=== PATIENT | female | born 1995 | race Two or more races ===

== ENCOUNTER 2017-06-04 21:55 | Emergency (ER) | payer BC ==
[2017-06-04 22:31] LABS: URINE HCG POC HCG NEGATIVE (Negative)
[2017-06-04 22:52] LABS: ADD MAN DIFF? NO
[2017-06-04] MEDS: IV NORMAL SALINE 1000ML BAG 1,000 ML IV (22:54)
[2017-06-04 22:55] LABS: BASO % 0 % (0-3); EOS # 0.2 x10^3/uL (0.0-0.7); EOS % 2 % (0-3); HEMATOCRIT 36.7 % (36.0-47.0); HEMOGLOBIN 11.7 g/dL (12.0-15.5); LYMPH # 3.6 x10^3/uL (1.0-4.8); LYMPH % 30 % (24-48); MEAN CORPUSCULAR HEMOGLOBIN 26 pg (25-35); MEAN CORPUSCULAR HGB CONC 32 g/dL (31-37); MEAN CORPUSCULAR VOLUME 83 fL (79-100); MONO # 0.7 x10^3/uL (0.0-1.1); MONO % 6 % (0-9); NEUT # 7.3 x10^3uL (1.8-7.7); NEUT % 62 % (31-73); PLATELET COUNT 273 x10^3/uL (140-400); RED BLOOD COUNT 4.44 x10^6/uL (3.50-5.40); RED CELL DISTRIBUTION WIDTH 15.4 % (11.5-14.5); WHITE BLOOD COUNT 11.8 x10^3/uL (4.0-11.0)
[2017-06-04 23:05] LABS: ANION GAP 11 (6-14); BLOOD UREA NITROGEN 23 mg/dL (7-20); BUN/CREATININE RATIO 33 (6-20); CALCIUM 8.1 mg/dL (8.5-10.1); CARBON DIOXIDE 26 mmol/L (21-32); CHLORIDE 103 mmol/L (98-107); CREATININE 0.7 mg/dL (0.6-1.0); GFR 104.6; GLUCOSE 113 mg/dL (70-99); POTASSIUM 3.7 mmol/L (3.5-5.1); SODIUM 140 mmol/L (136-145)
[2017-06-04 23:06] LABS: PARTIAL THROMBOPLASTIN TIME 30 SEC (24-38); PROTHROMBIN TIME PATIENT 12.8 SEC (11.7-14.0)
[2017-06-04 23:11] LABS: ALBUMIN 3.4 g/dL (3.4-5.0); ALBUMIN/GLOBULIN RATIO 0.8 (1.0-1.7); ALK PHOS 95 U/L (46-116); ALT (SGPT) 21 U/L (14-59); AST (SGOT) 17 U/L (15-37); TOTAL BILIRUBIN 0.1 mg/dL (0.2-1.0); TOTAL PROTEIN 7.8 g/dL (6.4-8.2)
[2017-06-04 23:13] LABS: D-DIMER < 0.27 ug/mlFEU (0.00-0.50)
[2017-06-04] MEDS: IOHEXOL 300 MG/ML 100ML VIAL. IV (23:17)
[2017-06-04] MEDS ORDERED: CONTRAST GIVEN MC (23:30)
== END 2017-06-05 00:11 | disposition home or self-care (01) ==
LOC: ER 06-05 00:11
DX: J06.9 Acute upper respiratory infection, unspecified (principal); E66.9 Obesity, unspecified; Z68.30 Body mass index [BMI] 30.0-30.9, adult
CPT/HCPCS: 36415; 71046; 71275; 80053; 81025; 85025; 85379; 85610; 85730; 96360; 99285-25; J7030; Q9967